=== PATIENT | female | born 1990 | race Caucasian/White ===

== ENCOUNTER 2018-09-18 18:35 | Emergency (ER) | payer SELFPAY ==
[~2018-09-18] VITALS: Ht 152.4 cm; Wt 54.2 kg
[2018-09-18 19:03] VITALS: PULSE 99; Ht 152.4 cm; Wt 54.2 kg
--- NOTE | 2018-09-18 21:23 | ERD ---
ER Documentation Chief Complaint Chief Complaint UPPER RT DENTAL AND JAW PAIN HPI This is a 28-year-old female patient who presents to the emergency room with complaint of upper right molar pain x2 weeks. Patient states that she has been unable to receive dental care as she has just immigrated from [facility]. She is planning on going to the dentist tomorrow however she does not have an actual appointment at the dentist tomorrow. Denies fever, denies difficulty swallowing. Denies any other medical problems. ROS All systems reviewed and are negative except as per history of present illness. Medications Home Meds Active Scripts Hydrocodone/Acetaminophen ([place] 5-325 Tablet) 1 Each Tablet, 1 TAB PO Q6H PRN for PAIN for 3 Days, #7 TAB Prov:GABRIEL STEVENS [employer] 09/18/18 Penicillin V Potassium* (Penicillin V K*) 500 Mg Tab, 500 MG PO QID for DENTAL INFECTION for 10 Days, #40 TAB Prov:GABRIEL STEVENS [employer] 09/18/18 Allergies Allergies: Coded Allergies: No Known Allergy (Unverified , 09/18/18) PMhx/Soc Medical and Surgical Hx: pt denies Medical Hx, pt denies Surgical Hx Hx Alcohol Use: No Hx Substance Use: No Hx Tobacco Use: No FmHx Family History: No diabetes, No coronary disease, No other Physical Exam Vitals Vital Signs Date Temp Pulse Resp B/P (MAP) Pulse Ox O2 O2 Flow FiO2 Time Delivery Rate 09/18/18 98.9 16 110/75 96 21:52 (87) 09/18/18 99.5 99 17 113/76 96 19:03 (88) Physical Exam Const: No acute distress Head: Atraumatic, no swelling, no maxillary tenderness, no erythema Eyes: Normal Conjunctiva, PERRL, no periorbital swelling or cellulitis ENT: Normal External Ears, No pre or post auricular tenderness, no sublingual, submental, or submandibular swelling. Pharynx pink, no lesions, no exudate, tonsils +1. Right 1st molar with dark brown decay, tender, +erythema to lingual surface , no odor, no TMJ pain. Neck: Full range of motion. No meningismus. No lymphadenopathy. No dysphagia, no hot potato voice, no stridor Resp: Clear to auscultation bilaterally Cardio: Regular rate and rhythm, no murmurs Abd: Soft, non tender, non distended. Normal bowel sounds Skin: No petechiae or rash Ext: No cyanosis, or edema Neur: Awake and alert Psych: Normal Mood and Affect Results 24 hrs Current Medications Medications Dose Sig/Ar Start Time Status Last (Trade) Ordered Route PRN Stop Time Admin Dose Reason Admin 1 tab ONCE ONCE 09/18/18 DC 09/18/18 Acetaminophen PO 22:00 21:56 / 09/18/18 22:01 Hydrocodone Bitart ([place] ()) Procedures/MDM This is a 28-year-old female patient who presents with right upper molar tooth pain ongoing for several weeks. She also presents with her 2 young children. Patient states she just arrived here from [facility]. She has not had medical or dental care. She is requesting physical evaluation for her children and help with the pain in her right jaw. Patient is pleasant and cooperative and experiencing quite a bit of pain in her mouth. Her appearance is quite disheveled and seems to be a bit overwhelmed at taking care of her children. She states she is staying with family who have lived in [place] for some time and are providing support to her and her children. She states she has a who lives in [place]. Right upper first molar with signs of decay and infection. Patient will be treated for tooth infection and provided with analgesia. Clinical presentation and exam not suggestive for abscess, pending airway obstruction, deep space infection, Isaiah's angina, cellulitis, sinusitis Patient was also provided with dental resources in the area. Discussed with patient concern of prescribing narcotics for dental pain due to patient needing to care for small children. Patient and family member that was with her stated they would assist with taking care of the children if [place] is made the patient drowsy. Family member with patient also states they will assist patient to find dentist tomorrow. Patient was instructed to initiate antibiotic today and continue until she sees the dentist bringing antibiotic bottle with her to dental visit. Patient was instructed on signs and symptoms of worsening of dental condition and when to return to the emergency room to seek emergent medical treatment. Departure Diagnosis: Primary Impression: Dental infection Condition: Stable Patient Instructions: Dental Pain Referrals: [facility] Additional Instructions: Thank you very much for allowing us to participate in your care. Your health and safety is our top priority at [facility]. Call your primary care doctor TOMORROW for an appointment during the next 2-4 days and bring all the information and medications prescribed. Have prescriptions filled and follow precisely the directions on the label. If the symptoms get worse and your provider is unavailable, return to the Emergency Department immediately. GABRIEL STEVENS NP Sep 18, 2018 21:23
[2018-09-18] MEDS ORDERED: HYDR-4011 PO (21:25)
[2018-09-18] MEDS ORDERED: PENI500T PO (21:25)
[2018-09-18 21:52] VITALS: BP 110/75; RESP 16
[2018-09-18] MEDS ORDERED: HYDROCODONE/APAP (10/325) TAB PO ONE (22:00)
== END 2018-09-18 22:02 | disposition home or self-care (01) ==
LOC: FTE 18:35
DX: K04.7 Periapical abscess without sinus (principal)
CPT/HCPCS: 99283